=== PATIENT | female | born 1950 | race African-American/Black ===

== ENCOUNTER 2019-04-11 08:40 | Inpatient (IN) | payer MEDICAID ==
[~2019-04-11] VITALS: Ht 167.6 cm; Wt 100.2 kg
[2019-04-11] MEDS ORDERED: ALBUTEROL (0.083%) 2.5MG/3ML NEB HHN STA (10:58)
[2019-04-11] MEDS ORDERED: IPRATROPIUM BROMIDE (0.02%) 0.5MG/2.5ML NEB HHN STA (10:58)
[2019-04-11] MEDS ORDERED: ALBUTEROL (0.083%) 2.5MG/3ML NEB ONE (11:16)
[2019-04-11] MEDS ORDERED: IPRATROPIUM BROMIDE (0.02%) 0.5MG/2.5ML NEB ONE (11:17)
[2019-04-11 11:21] LABS: BASOPHILS % 0.1 % (0.0-2.0); HEMATOCRIT. 32.3 % (36.0-48.0); HEMOGLOBIN. 11.5 g/dL (12.0-16.0); LYMPHOCYTES % 23.6 % (20.0-50.0); MEAN CORPUSCULAR HEMOGLOBIN 33.7 pg (28.0-32.0); MEAN PLATELET VOLUME 9.8 fl (7.4-10.4); MONOCYTES % 9.7 % (2.0-8.0); NEUTROPHILS % 66.6 % (40.0-76.0); PLATELET 125 x1000/uL (130-400); RED CELL DISTRIBUTION WIDTH 14.2 % (11.6-14.6)
[2019-04-11 11:27] LABS: CHLORIDE 107 mEq/L (98-107)
[2019-04-11] MEDS ORDERED: ASPIRIN 81MG TABLET PO ONE (12:15)
[2019-04-11 20:00] VITALS: BP 101/44
[2019-04-11] MEDS ORDERED: DIPH25TA62 PO (20:15)
[2019-04-11] MEDS ORDERED: LEVO125T PO (20:15)
[2019-04-11] MEDS ORDERED: ONDANSETRON HCL 4MG/2ML INJ IV PRN (20:45)
[2019-04-11] MEDS ORDERED: ACETAMINOPHEN 325MG TABLET PO PRN (20:45)
[2019-04-11] MEDS: DIPHENHYDRAMINE 50MG/ML VIAL IV PRN (21:20)
[2019-04-11] MEDS: GUAIFENESIN/CODEINE 200-20MG/10ML UDC PO PRN (21:30)
[2019-04-11] MEDS: METHYLPREDNISOLONE SOD SUCC 40 MG/ML VIAL IV SCH (21:36)
[2019-04-11 23:53] LABS: CREATINE KINASE MB FRACTION 1.7 ng/mL (0.5-3.6)
[2019-04-12] VITALS: BP 125/50
[2019-04-12] MEDS: IPRATROPIUM/ALBUTEROL 0.5-3(2.5)MG/3ML NEB HHN SCH ×4 (00:22→20:54)
[2019-04-12] MEDS: GUAIFENESIN/CODEINE 200-20MG/10ML UDC PO PRN ×3 (03:57→21:17)
[2019-04-12 04:00] VITALS: BP 109/52
[2019-04-12] MEDS: METHYLPREDNISOLONE SOD SUCC 40 MG/ML VIAL IV SCH ×3 (05:31→21:17)
[2019-04-12 07:09] LABS: BASOPHILS % 0.1 % (0.0-2.0); HEMATOCRIT. 33.7 % (36.0-48.0); HEMOGLOBIN. 11.4 g/dL (12.0-16.0); LYMPHOCYTES % 10.5 % (20.0-50.0); MEAN CORPUSCULAR VOLUME 94.8 fL (81.0-99.0); MEAN PLATELET VOLUME 10.4 fl (7.4-10.4); MONOCYTES % 3.3 % (2.0-8.0); NEUTROPHILS % 86.1 % (40.0-76.0); PLATELET 136 x1000/uL (130-400); RED BLOOD CELL COUNT 3.56 mill/uL (4.2-5.4); RED CELL DISTRIBUTION WIDTH 14.1 % (11.6-14.6)
[2019-04-12 07:27] LABS: CHLORIDE 109 mEq/L (98-107)
[2019-04-12 07:38] LABS: LDL CHOLESTEROL 76 mg/dL (5-100)
[2019-04-12 07:39] LABS: CREATINE KINASE 154 IU/L (26-192)
[2019-04-12 07:40] LABS: HDL CHOLESTEROL 36 mg/dL (40-59)
[2019-04-12 07:57] LABS: CREATINE KINASE MB FRACTION 1.7 ng/mL (0.5-3.6)
[2019-04-12 08:00] VITALS: BP 137/68
[2019-04-12] MEDS: LEVOTHYROXINE SODIUM 125MCG TABLET PO SCH (08:45)
[2019-04-12] MEDS ORDERED: AMOXICILLIN/POTASSIUM CLAVULANATE 875/125MG TAB PO SCH (09:00)
[2019-04-12] MEDS: ENOXAPARIN 30MG/0.3ML SYR SUBCUT SCH ×2 (09:38→21:16)
[2019-04-12] MEDS ORDERED: LEVOFLOXACIN 500MG TABLET PO SCH (11:00)
[2019-04-12 12:00] VITALS: BP_SYST 116; BP_SYST 132; BP_DIAS 54; BP_DIAS 87
[2019-04-12 16:00] VITALS: BP 123/63
[2019-04-12 17:00] LABS: CREATINE KINASE MB FRACTION 1.9 ng/mL (0.5-3.6)
[2019-04-12 19:30] VITALS: BP 125/56
[2019-04-13] VITALS: BP 109/46
[2019-04-13] MEDS: IPRATROPIUM/ALBUTEROL 0.5-3(2.5)MG/3ML NEB HHN SCH ×4 (00:15→12:30)
[2019-04-13 04:00] VITALS: BP 141/65
[2019-04-13] MEDS: GUAIFENESIN/CODEINE 200-20MG/10ML UDC PO PRN ×2 (04:53→11:31)
[2019-04-13] MEDS: METHYLPREDNISOLONE SOD SUCC 40 MG/ML VIAL IV SCH ×2 (06:18→14:24)
[2019-04-13] MEDS: LEVOTHYROXINE SODIUM 125MCG TABLET PO SCH (07:10)
[2019-04-13 08:00] VITALS: BP 138/69
[2019-04-13] MEDS: DIPHENHYDRAMINE 50MG/ML VIAL IV PRN ×2 (08:25→14:25)
[2019-04-13] MEDS: ENOXAPARIN 30MG/0.3ML SYR SUBCUT SCH (09:00)
[2019-04-13] MEDS ORDERED: DIPHENHYDRAMINE 50MG/ML VIAL IV PRN (09:30)
[2019-04-13 12:00] VITALS: BP 140/75
[2019-04-13 14:56] VITALS: BP 140/75
== END 2019-04-13 15:58 | disposition home or self-care (01) | DRG 145 ==
LOC: ER 08:40 → 7WST 11:31 → EDBEDREQ 13:25 → EDBEDREQTM 13:25 → EDBEDREQ 13:58 → EDBEDREQTM 13:58 → ENRESERV 17:38
PROVIDERS: ADMIT Internal Medicine; ATTEND Internal Medicine
DX: J20.9 Acute bronchitis, unspecified (principal); E89.0 Postprocedural hypothyroidism; M94.0 Chondrocostal junction syndrome [Tietze]; M19.90 Unspecified osteoarthritis, unspecified site; R79.89 Other specified abnormal findings of blood chemistry; Z85.3 Personal history of malignant neoplasm of breast; Z92.21 Personal history of antineoplastic chemotherapy
CPT/HCPCS: 36415; 71045; 80048; 80061; 82550; 82553; 83036; 83880; 84443; 84484; 87804; 93005; 93306; 94640; 99285; J1200; J1650; J2920; J7611; J7620

== ENCOUNTER 2019-11-26 11:19 | Inpatient (IN) | payer MEDICAID ==
[~2019-11-26] VITALS: Ht 162.6 cm; Wt 87.7 kg
[~2019-11-26 11:19] MED LIST: DIPH25TA62 PO; LEVO125T PO
[2019-11-26] MEDS ORDERED: KETOROLAC 30MG/ML VIAL IV STA (11:39)
[2019-11-26 12:24] LABS: BASOPHILS % 0.4 % (0.0-2.0); HEMATOCRIT. 43.5 % (36.0-48.0); LYMPHOCYTES % 13.9 % (20.0-50.0); MEAN CORPUSCULAR HEMOGLOBIN 32.9 pg (28.0-32.0); MEAN CORPUSCULAR VOLUME 95.6 fL (81.0-99.0); MEAN PLATELET VOLUME 10.6 fl (7.4-10.4); MONOCYTES % 5.7 % (2.0-8.0); PLATELET 165 x1000/uL (130-400); RED BLOOD CELL COUNT 4.55 mill/uL (4.2-5.4); RED CELL DISTRIBUTION WIDTH 14.4 % (11.6-14.6)
[2019-11-26 12:31] LABS: CHLORIDE 106 mEq/L (98-107)
[2019-11-26] MEDS ORDERED: ONDANSETRON HCL 4MG/2ML INJ IV PRN (14:30)
[2019-11-26 19:35] LABS: HEPATITIS B SURFACE ANTIGEN NEGATIVE
[2019-11-26 19:56] LABS: CREATINE KINASE 1724 IU/L (26-192)
[2019-11-26 20:05] LABS: HEPATITIS A AB IGM NEGATIVE (NEGATIVE)
[2019-11-26 23:30] VITALS: BP 116/45
[2019-11-27] VITALS (17 sets, daily range): BP systolic 107–132; BP diastolic 43–76
[2019-11-27] MEDS: HYDROCODONE/ACETAMINOPHEN 10/325MG TABLET PO PRN ×2 (06:35→15:25)
[2019-11-27 06:58] LABS: BASOPHILS % 0.2 % (0.0-2.0); HEMATOCRIT. 33.7 % (36.0-48.0); HEMOGLOBIN. 11.9 g/dL (12.0-16.0); LYMPHOCYTES % 30.2 % (20.0-50.0); MEAN CORPUSCULAR HEMOGLOBIN 33.2 pg (28.0-32.0); MEAN CORPUSCULAR VOLUME 93.8 fL (81.0-99.0); MEAN PLATELET VOLUME 10.2 fl (7.4-10.4); MONOCYTES % 9.5 % (2.0-8.0); NEUTROPHILS % 60.1 % (40.0-76.0); PLATELET 133 x1000/uL (130-400); RED CELL DISTRIBUTION WIDTH 14.7 % (11.6-14.6)
[2019-11-27 07:26] LABS: CHLORIDE 108 mEq/L (98-107)
[2019-11-27] MEDS ORDERED: POTASSIUM CHLORIDE 20MEQ TABLET SR PO NR (09:00)
[2019-11-27] MEDS: LEVOTHYROXINE SODIUM 125MCG TABLET PO SCH (09:43)
[2019-11-27] MEDS ORDERED: GADOBENATE DIMEGLUMINE 529 MG/ML 10ML IV ONE (14:49)
[2019-11-27] MEDS: LEVETIRACETAM 500MG PREMIX 100 ML IV SCH ×2 (15:15→20:50)
[2019-11-27 17:00] LABS: INR 1.1; PROTHROMBIN TIME 11.4 sec (9.6-11.0)
[2019-11-27] MEDS: DEXAMETHASONE 4MG/ML 1ML VIAL IV SCH ×2 (18:38→23:49)
[2019-11-27] MEDS ORDERED: NICARDIPINE 100 MG in SODIUM CHLORIDE 0.9% 60 ML IV PRN (19:00)
[2019-11-28] VITALS (70 sets, daily range): BP systolic 106–149; BP diastolic 45–76
[2019-11-28 03:36] LABS: CLARITY URINE CLEAR (CLEAR); COLOR URINE YELLOW (YELLOW); KETONES URINE TRACE (NEGATIVE); LEUKOCYTE ESTERASE URINE 1+ (NEGATIVE); NITRITE URINE NEGATIVE (NEGATIVE); OCCULT BLOOD URINE 1+ (NEGATIVE); PROTEIN URINE TRACE (NEGATIVE); SPECIFIC GRAVITY URINE 1.062 (1.005-1.030)
[2019-11-28] MEDS: DEXAMETHASONE 4MG/ML 1ML VIAL IV SCH ×3 (05:20→18:11)
[2019-11-28] MEDS: LEVOTHYROXINE SODIUM 125MCG TABLET PO SCH (05:20)
[2019-11-28 05:33] LABS: HEMATOCRIT. 32.7 % (36.0-48.0); HEMOGLOBIN. 11.4 g/dL (12.0-16.0); LYMPHOCYTES % 11.1 % (20.0-50.0); MEAN CORPUSCULAR HEMOGLOBIN 33.1 pg (28.0-32.0); MEAN CORPUSCULAR VOLUME 94.6 fL (81.0-99.0); MEAN PLATELET VOLUME 10.4 fl (7.4-10.4); MONOCYTES % 2.4 % (2.0-8.0); NEUTROPHILS % 86.5 % (40.0-76.0); PLATELET 133 x1000/uL (130-400); RED BLOOD CELL COUNT 3.46 mill/uL (4.2-5.4); RED CELL DISTRIBUTION WIDTH 14.4 % (11.6-14.6)
[2019-11-28 05:35] LABS: CHLORIDE 108 mEq/L (98-107)
[2019-11-28] MEDS ORDERED: LEVOTHYROXINE SODIUM 125MCG TABLET PO SCH (06:30)
[2019-11-28] MEDS ORDERED: BACITRACIN 15GM TUBE TOP ONE (07:58)
[2019-11-28] MEDS ORDERED: THROMBIN (BOVINE) 5000 UNITS/VIAL TOP ONE ×2 (07:58→07:59)
[2019-11-28] MEDS ORDERED: LIDOCAINE HCL/EPINEPHRINE 1%-EPI 1:100,000 20 ML VIAL ONE (07:59)
[2019-11-28] MEDS ORDERED: NORMAL SALINE 0.9% 10 ML SYR ONE (07:59)
[2019-11-28] MEDS ORDERED: BACITRACIN 50,000 UNITS/VIAL ONE (07:59)
[2019-11-28] MEDS: LEVETIRACETAM 500MG PREMIX 100 ML IV SCH ×2 (08:14→20:22)
[2019-11-28] MEDS ORDERED: MIDAZOLAM HCL 2 MG/2 ML VIAL ONE (09:18)
[2019-11-28] MEDS ORDERED: FENTANYL CITRATE/PF 50MCG/ML 2ML VIAL ONE ×2 (09:18→09:58)
[2019-11-28] MEDS ORDERED: ROCURONIUM BROMIDE 10MG/ML VIAL 5ML IV ONE (09:18)
[2019-11-28] MEDS ORDERED: PROPOFOL 200MG/20ML VIAL IV ONE ×2 (09:18→09:59)
[2019-11-28] MEDS ORDERED: NEOSTIGMINE METHYLSULFATE 1MG/ML 10 ML VIAL ONE (09:18)
[2019-11-28] MEDS ORDERED: GLYCOPYRROLATE 0.2 MG/ML 2ML VIAL ONE (09:19)
[2019-11-28] MEDS ORDERED: CLINDAMYCIN 900 MG PREMIX 50 ML IV ONE (09:28)
[2019-11-28] MEDS ORDERED: MANNITOL 20% 500 ML IV ONE (09:35)
[2019-11-28] MEDS ORDERED: DEXAMETHASONE 4MG/ML 1ML VIAL ONE ×2 (09:35→09:49)
[2019-11-28] MEDS ORDERED: ONDANSETRON HCL 4MG/2ML INJ ONE (09:49)
[2019-11-28] MEDS ORDERED: SODIUM CHLORIDE 0.9% 10ML VIAL ONE (10:50)
[2019-11-28] MEDS ORDERED: LIDOCAINE HCL/PF 1% 10 MG/ML 5ML VIAL ONE (10:50)
[2019-11-28] MEDS ORDERED: LABETALOL HCL 5MG/ML VIAL 20ML IV ONE (10:50)
[2019-11-28] MEDS ORDERED: HYDRALAZINE 20MG/ML VIAL ONE (10:51)
[2019-11-28] MEDS: MORPHINE SULFATE 4 MG/ML CPJ (NOT FOR IM USE) IV PRN (11:31)
[2019-11-28] MEDS: DEXT 5%/LACTATED RINGERS 1,000 ML IV SCH (12:06)
[2019-11-28] MEDS ORDERED: LIDOCAINE HCL 1% 20ML VIAL (Pyxis) INJ ONE (12:43)
[2019-11-28] MEDS ORDERED: NALOXONE INJ IV PRN (12:45)
[2019-11-28] MEDS ORDERED: ONDANSETRON INJ IV PRN (12:45)
[2019-11-28] MEDS ORDERED: HYDROMORPHONE PCA 10MG/50ML IV PRN (12:45)
[2019-11-28] MEDS: CLINDAMYCIN 600MG PREMIX 50 ML IV SCH ×2 (13:41→20:22)
[2019-11-28 13:45] LABS: BG BASE EXCESS 0.3 mmol/L (-2.0-2.0); BG CARBOXYHEMOGLOBIN 0.3 % (0.5-1.5); BG DEOXYHEMOGLOBIN 2.4 % (0.0-5.0); BG FRACTION INSPIRED OXYGEN 40; BG HCO3 ACT 24.2 mmol/L (22.0-26.0); BG METHEMOGLOBIN 0.3 % (0.0-1.5); BG OXYGEN SATURATION 97.6 % (92.0-98.5); BG PCO2 36.5 mmHg (35.0-45.0); BG PO2 106.1 mmHg (75.0-100.0); BG PRESSURE SUPPORT 8; BG SAMPLE SITE A-LINE; BG TOTAL HEMOGLOBIN 11.4 g/dL (12.0-18.0); BG VENT MODE VENT - CPAP
[2019-11-29] VITALS (45 sets, daily range): BP systolic 97–166; BP diastolic 44–91
[2019-11-29] MEDS: DEXAMETHASONE 4MG/ML 1ML VIAL IV SCH ×4 (00:14→17:33)
[2019-11-29] MEDS: MORPHINE SULFATE 4 MG/ML CPJ (NOT FOR IM USE) IV PRN ×2 (03:39→22:51)
[2019-11-29 05:35] LABS: CHLORIDE 111 mEq/L (98-107)
[2019-11-29 05:36] LABS: BASOPHILS % 0.1 % (0.0-2.0); HEMATOCRIT. 30.3 % (36.0-48.0); HEMOGLOBIN. 10.5 g/dL (12.0-16.0); LYMPHOCYTES % 8.1 % (20.0-50.0); MEAN CORPUSCULAR HEMOGLOBIN 33.2 pg (28.0-32.0); MEAN CORPUSCULAR VOLUME 95.5 fL (81.0-99.0); MEAN PLATELET VOLUME 10.3 fl (7.4-10.4); MONOCYTES % 4.8 % (2.0-8.0); PLATELET 140 x1000/uL (130-400); RED BLOOD CELL COUNT 3.17 mill/uL (4.2-5.4); RED CELL DISTRIBUTION WIDTH 14.7 % (11.6-14.6)
[2019-11-29] MEDS: CLINDAMYCIN 600MG PREMIX 50 ML IV SCH ×3 (05:48→20:11)
[2019-11-29] MEDS: LEVOTHYROXINE SODIUM 125MCG TABLET PO SCH (05:49)
[2019-11-29] MEDS: LEVETIRACETAM 500MG PREMIX 100 ML IV SCH ×2 (08:37→20:11)
[2019-11-29] MEDS ORDERED: NOREPINEPHRINE 32 MG in DEXT 5% WATER 468 ML IV PRN (23:15)
[2019-11-29] MEDS: HYDROCODONE/ACETAMINOPHEN 10/325MG TABLET PO PRN (23:38)
[2019-11-30] VITALS (29 sets, daily range): BP systolic 115–171; BP diastolic 44–86
[2019-11-30] MEDS: DEXT 5%/LACTATED RINGERS 1,000 ML IV SCH (01:48)
[2019-11-30] MEDS: CLINDAMYCIN 600MG PREMIX 50 ML IV SCH (04:42)
[2019-11-30 05:08] LABS: BASOPHILS % 0.2 % (0.0-2.0); EOSINOPHILS % 0.1 % (0.0-5.0); HEMATOCRIT. 28.5 % (36.0-48.0); HEMOGLOBIN. 10.1 g/dL (12.0-16.0); LYMPHOCYTES % 14.5 % (20.0-50.0); MEAN CORPUSCULAR HEMOGLOBIN 33.6 pg (28.0-32.0); MEAN CORPUSCULAR VOLUME 95.2 fL (81.0-99.0); MEAN PLATELET VOLUME 10.3 fl (7.4-10.4); MONOCYTES % 8.2 % (2.0-8.0); PLATELET 133 x1000/uL (130-400); RED CELL DISTRIBUTION WIDTH 14.5 % (11.6-14.6)
[2019-11-30 05:17] LABS: CHLORIDE 108 mEq/L (98-107)
[2019-11-30] MEDS: LEVOTHYROXINE SODIUM 125MCG TABLET PO SCH (05:32)
[2019-11-30] MEDS: LEVETIRACETAM 500MG PREMIX 100 ML IV SCH ×2 (08:12→20:15)
[2019-11-30] MEDS: MORPHINE SULFATE 4 MG/ML CPJ (NOT FOR IM USE) IV PRN (08:13)
[2019-11-30] MEDS: HYDROCODONE/ACETAMINOPHEN 10/325MG TABLET PO PRN ×2 (09:47→16:36)
[2019-12-01] VITALS (7 sets, daily range): BP systolic 116–155; BP diastolic 53–72
[2019-12-01] MEDS: HYDROCODONE/ACETAMINOPHEN 10/325MG TABLET PO PRN (00:16)
[2019-12-01] MEDS: LEVOTHYROXINE SODIUM 125MCG TABLET PO SCH (06:52)
[2019-12-01] MEDS: LEVETIRACETAM 500MG PREMIX 100 ML IV SCH ×2 (09:27→21:15)
[2019-12-01] MEDS: ACETAMINOPHEN 325MG TABLET PO PRN (14:14)
[2019-12-01] MEDS: MORPHINE SULFATE 4 MG/ML CPJ (NOT FOR IM USE) IV PRN (21:14)
[2019-12-02] VITALS: BP 123/58
[2019-12-02 04:00] VITALS: BP 115/49
[2019-12-02] MEDS: MORPHINE SULFATE 4 MG/ML CPJ (NOT FOR IM USE) IV PRN ×3 (05:15→21:12)
[2019-12-02] MEDS: LEVOTHYROXINE SODIUM 125MCG TABLET PO SCH (06:34)
[2019-12-02 08:00] VITALS: BP 131/60
[2019-12-02] MEDS: LEVETIRACETAM 500MG PREMIX 100 ML IV SCH ×2 (09:19→20:38)
[2019-12-02 12:00] VITALS: BP 109/54
[2019-12-02 16:00] VITALS: BP 112/45
[2019-12-02 20:00] VITALS: BP 109/65
[2019-12-03] VITALS: BP 101/70
[2019-12-03 04:00] VITALS: BP 125/57
[2019-12-03] MEDS: LEVOTHYROXINE SODIUM 125MCG TABLET PO SCH (06:22)
[2019-12-03 08:00] VITALS: BP 123/60
[2019-12-03] MEDS: LEVETIRACETAM 500MG PREMIX 100 ML IV SCH ×2 (09:37→21:09)
[2019-12-03 12:00] VITALS: BP 118/62
[2019-12-03] MEDS: ACETAMINOPHEN 325MG TABLET PO PRN ×2 (13:46→21:16)
[2019-12-03 16:00] VITALS: BP 115/53
[2019-12-03 20:00] VITALS: BP 130/72
[2019-12-03] MEDS ORDERED: MORPHINE SULFATE 4 MG/ML CPJ (NOT FOR IM USE) IV PRN (23:15)
[2019-12-04] VITALS: BP 108/56
[2019-12-04] MEDS: MORPHINE SULFATE 2 MG/ML CPJ (NOT FOR IM USE) IV PRN ×4 (03:01→20:36)
[2019-12-04 04:00] VITALS: BP 130/58
[2019-12-04] MEDS: LEVOTHYROXINE SODIUM 125MCG TABLET PO SCH (06:28)
[2019-12-04 08:00] VITALS: BP 129/54
[2019-12-04] MEDS: LEVETIRACETAM 500MG PREMIX 100 ML IV SCH ×2 (08:30→20:35)
[2019-12-04 12:00] VITALS: BP 113/56
[2019-12-04 16:00] VITALS: BP 118/70
[2019-12-04 20:00] VITALS: BP 121/52
[2019-12-05] VITALS: BP 125/61
[2019-12-05] MEDS: ACETAMINOPHEN 325MG TABLET PO PRN (01:04)
[2019-12-05 04:00] VITALS: BP 111/59
[2019-12-05] MEDS: LEVOTHYROXINE SODIUM 125MCG TABLET PO SCH (06:24)
[2019-12-05 08:00] VITALS: BP 128/59
[2019-12-05] MEDS: LEVETIRACETAM 500MG PREMIX 100 ML IV SCH ×2 (09:15→20:21)
[2019-12-05 12:00] VITALS: BP 107/51
[2019-12-05] MEDS: MORPHINE SULFATE 2 MG/ML CPJ (NOT FOR IM USE) IV PRN ×3 (12:27→20:56)
[2019-12-05 16:00] VITALS: BP 112/59
[2019-12-05 20:00] VITALS: BP 115/51
[2019-12-06] VITALS: BP 112/51
[2019-12-06 04:00] VITALS: BP 114/51
[2019-12-06] MEDS: LEVOTHYROXINE SODIUM 125MCG TABLET PO SCH (06:20)
[2019-12-06 06:21] LABS: CHLORIDE 105 mEq/L (98-107)
[2019-12-06 07:36] LABS: BASOPHILS % 0.2 % (0.0-2.0); HEMATOCRIT. 31.4 % (36.0-48.0); HEMOGLOBIN. 11.1 g/dL (12.0-16.0); LYMPHOCYTES % 19.6 % (20.0-50.0); MEAN CORPUSCULAR HEMOGLOBIN 33.3 pg (28.0-32.0); MEAN CORPUSCULAR VOLUME 94.6 fL (81.0-99.0); MEAN PLATELET VOLUME 10.7 fl (7.4-10.4); MONOCYTES % 9.2 % (2.0-8.0); PLATELET 135 x1000/uL (130-400); RED BLOOD CELL COUNT 3.32 mill/uL (4.2-5.4); RED CELL DISTRIBUTION WIDTH 14.7 % (11.6-14.6)
[2019-12-06 08:00] VITALS: BP 113/59
[2019-12-06] MEDS: LEVETIRACETAM 500MG PREMIX 100 ML IV SCH ×2 (08:53→20:34)
[2019-12-06 12:00] VITALS: BP 116/51
[2019-12-06 16:00] VITALS: BP 90/58
[2019-12-06 20:00] VITALS: BP 126/66
[2019-12-06] MEDS: HYDROCODONE/ACETAMINOPHEN 5/325MG TABLET PO PRN (20:32)
[2019-12-07] VITALS: BP 118/65
[2019-12-07 04:00] VITALS: BP 117/68
[2019-12-07] MEDS: LEVOTHYROXINE SODIUM 125MCG TABLET PO SCH (06:33)
[2019-12-07 07:22] LABS: BASOPHILS % 0.1 % (0.0-2.0); HEMATOCRIT. 31.2 % (36.0-48.0); HEMOGLOBIN. 10.5 g/dL (12.0-16.0); LYMPHOCYTES % 19.6 % (20.0-50.0); MEAN CORPUSCULAR HEMOGLOBIN 31.8 pg (28.0-32.0); MEAN CORPUSCULAR VOLUME 94.4 fL (81.0-99.0); MEAN PLATELET VOLUME 10.5 fl (7.4-10.4); MONOCYTES % 9.1 % (2.0-8.0); NEUTROPHILS % 71.2 % (40.0-76.0); PLATELET 132 x1000/uL (130-400); RED CELL DISTRIBUTION WIDTH 15.1 % (11.6-14.6)
[2019-12-07 07:34] LABS: CHLORIDE 106 mEq/L (98-107)
[2019-12-07 08:00] VITALS: BP 117/58
[2019-12-07] MEDS: DOCUSATE SODIUM 250MG CAPSULE PO SCH ×2 (10:00→17:27)
[2019-12-07] MEDS: LEVETIRACETAM 500MG PREMIX 100 ML IV SCH ×2 (10:00→21:30)
[2019-12-07] MEDS ORDERED: POTASSIUM CHLORIDE 20MEQ TABLET SR PO NR (10:30)
[2019-12-07 12:00] VITALS: BP 110/63
[2019-12-07] MEDS: HYDROCODONE/ACETAMINOPHEN 5/325MG TABLET PO PRN ×2 (14:48→21:35)
[2019-12-07 16:00] VITALS: BP 102/49
[2019-12-07 20:00] VITALS: BP 144/56
[2019-12-08] VITALS: BP 120/59
[2019-12-08 04:00] VITALS: BP 115/49
[2019-12-08] MEDS: HYDROCODONE/ACETAMINOPHEN 5/325MG TABLET PO PRN ×3 (06:49→20:32)
[2019-12-08] MEDS: LEVOTHYROXINE SODIUM 125MCG TABLET PO SCH (06:49)
[2019-12-08 08:00] VITALS: BP 111/57
[2019-12-08] MEDS: LEVETIRACETAM 500MG PREMIX 100 ML IV SCH ×2 (08:25→20:15)
[2019-12-08] MEDS: DOCUSATE SODIUM 250MG CAPSULE PO SCH ×2 (08:25→17:34)
[2019-12-08 12:00] VITALS: BP 126/85
[2019-12-08 16:00] VITALS: BP 114/57
[2019-12-08 20:00] VITALS: BP 108/53
[2019-12-09] VITALS: BP 102/57
[2019-12-09 04:00] VITALS: BP 115/59
[2019-12-09] MEDS: HYDROCODONE/ACETAMINOPHEN 5/325MG TABLET PO PRN ×2 (05:45→14:05)
[2019-12-09] MEDS: LEVOTHYROXINE SODIUM 125MCG TABLET PO SCH ×2 (06:25→06:30)
[2019-12-09 08:00] VITALS: BP 111/54
[2019-12-09] MEDS: DOCUSATE SODIUM 250MG CAPSULE PO SCH ×2 (08:16→16:00)
[2019-12-09] MEDS: LEVETIRACETAM 500MG PREMIX 100 ML IV SCH ×2 (08:16→21:39)
[2019-12-09 12:00] VITALS: BP 109/54
[2019-12-09 16:00] VITALS: BP 111/55
[2019-12-09 20:00] VITALS: BP 116/53
[2019-12-10] VITALS: BP 123/61
[2019-12-10] MEDS: HYDROCODONE/ACETAMINOPHEN 5/325MG TABLET PO PRN ×3 (00:10→14:34)
[2019-12-10 04:00] VITALS: BP 113/57
[2019-12-10] MEDS: LEVOTHYROXINE SODIUM 125MCG TABLET PO SCH (07:09)
[2019-12-10 08:00] VITALS: BP 109/61
[2019-12-10] MEDS: LEVETIRACETAM 500MG PREMIX 100 ML IV SCH ×2 (09:21→21:49)
[2019-12-10] MEDS: DOCUSATE SODIUM 250MG CAPSULE PO SCH ×2 (09:21→17:44)
[2019-12-10 12:00] VITALS: BP 102/51
[2019-12-10 16:43] VITALS: BP_SYST 100; BP_SYST 125; BP_DIAS 52; BP_DIAS 54
[2019-12-10 20:00] VITALS: BP 105/54
[2019-12-11] VITALS: BP 105/66
[2019-12-11] MEDS: HYDROCODONE/ACETAMINOPHEN 5/325MG TABLET PO PRN ×2 (01:32→12:33)
[2019-12-11 04:00] VITALS: BP 100/51
[2019-12-11] MEDS: LEVOTHYROXINE SODIUM 125MCG TABLET PO SCH (06:35)
[2019-12-11 08:00] VITALS: BP 112/57
[2019-12-11] MEDS: LEVETIRACETAM 500MG PREMIX 100 ML IV SCH (08:53)
[2019-12-11] MEDS: DOCUSATE SODIUM 250MG CAPSULE PO SCH (08:53)
[2019-12-11 12:00] VITALS: BP 99/52
[2019-12-11 13:58] VITALS: BP 99/52
== END 2019-12-11 17:55 | disposition short-term general hospital (02) | DRG 21 ==
LOC: ER 11:19 → 6EST 12:58 → EDBEDREQSVC 15:20 → ENRESERV 21:31 → MICUNO 11-27 18:01 → 6EST 11-30 13:35
PROVIDERS: ADMIT Internal Medicine; ATTEND Internal Medicine
PROC: 00B00ZZ Excision of Brain, Open Approach (ICD-10-PCS; principal; 2019-11-28)
PROC: 02HV33Z Insertion of Infusion Device into Superior Vena Cava, Percutaneous Approach (ICD-10-PCS; 2019-11-28)
PROC: B548ZZA Ultrasonography of Superior Vena Cava, Guidance (ICD-10-PCS; 2019-11-28)
PROC: 0BH17EZ Insertion of Endotracheal Airway into Trachea, Via Natural or Artificial Opening (ICD-10-PCS; 2019-11-28)
PROC: 5A1935Z Respiratory Ventilation, Less than 24 Consecutive Hours (ICD-10-PCS; 2019-11-28)
PROC: 4A00X4Z Measurement of Central Nervous Electrical Activity, External Approach (ICD-10-PCS; 2019-12-04)
DX: C79.31 Secondary malignant neoplasm of brain (principal); G93.6 Cerebral edema; G82.20 Paraplegia, unspecified; M48.02 Spinal stenosis, cervical region; D32.9 Benign neoplasm of meninges, unspecified; E11.9 Type 2 diabetes mellitus without complications; E66.9 Obesity, unspecified; D64.9 Anemia, unspecified; E87.6 Hypokalemia; I10 Essential (primary) hypertension; M47.816 Spondylosis without myelopathy or radiculopathy, lumbar region; K57.90 Diverticulosis of intestine, part unspecified, without perforation or abscess without bleeding; C43.9 Malignant melanoma of skin, unspecified; C79.40 Secondary malignant neoplasm of unspecified part of nervous system; E89.0 Postprocedural hypothyroidism; G81.94 Hemiplegia, unspecified affecting left nondominant side; C50.919 Malignant neoplasm of unspecified site of unspecified female breast; I60.9 Nontraumatic subarachnoid hemorrhage, unspecified; R26.2 Difficulty in walking, not elsewhere classified; R74.0 Nonspecific elevation of levels of transaminase and lactic acid dehydrogenase [LDH]; Z71.3 Dietary counseling and surveillance; Z88.0 Allergy status to penicillin; Z79.899 Other long term (current) drug therapy; G93.40 Encephalopathy, unspecified
CPT/HCPCS: 36415; 36600; 70553; 71045; 71260; 72141; 72146; 72148; 74177; 76937; 80048; 80053; 81003; 82375; 82378; 82550; 82805; 82962; 84484; 85025; 86300; 86705; 86709; 86803; 86850; 86900; 87340; 88307; 88331; 92610; 93005; 93306; 94002; 96374; 97116; 97162; 97164; 97166; 97530; 97535; 99285; A9577; C1713; C1725; J0360; J1100; J1170; J1885; J1953; J2250; J2270; J2405; J2704; J2710; J3010; J3490; J7050; J7120; J7121; U0003-CS

== ENCOUNTER 2019-12-11 18:00 | Inpatient (IN) | payer MEDICAID ==
[~2019-12-11] VITALS: Ht 162.6 cm; Wt 87.7 kg
[2019-12-11 20:00] VITALS: BP 122/60
[2019-12-11] MEDS ORDERED: ONDANSETRON HCL 4MG/2ML INJ IV PRN (20:45)
[2019-12-11] MEDS: LEVETIRACETAM 500MG PREMIX 100 ML IV SCH (22:23)
[2019-12-12 06:10] LABS: CHLORIDE 107 mEq/L (98-107)
[2019-12-12] MEDS: LEVOTHYROXINE SODIUM 125MCG TABLET PO SCH (06:11)
[2019-12-12 06:14] LABS: BASOPHILS % 0.1 % (0.0-2.0); HEMOGLOBIN. 10.8 g/dL (12.0-16.0); LYMPHOCYTES % 21.2 % (20.0-50.0); MEAN CORPUSCULAR HEMOGLOBIN 32.4 pg (28.0-32.0); MEAN CORPUSCULAR VOLUME 92.8 fL (81.0-99.0); MEAN PLATELET VOLUME 9.3 fl (7.4-10.4); NEUTROPHILS % 72.7 % (40.0-76.0); PLATELET 154 x1000/uL (130-400); RED BLOOD CELL COUNT 3.34 mill/uL (4.2-5.4); RED CELL DISTRIBUTION WIDTH 14.9 % (11.6-14.6)
[2019-12-12 08:03] VITALS: BP 115/59
[2019-12-12] MEDS: ACETAMINOPHEN 325MG TABLET PO PRN ×2 (08:55→21:48)
[2019-12-12] MEDS: DOCUSATE SODIUM 250MG CAPSULE PO SCH ×2 (08:55→18:19)
[2019-12-12] MEDS: LEVETIRACETAM 500MG PREMIX 100 ML IV SCH ×2 (09:53→21:45)
[2019-12-12 20:00] VITALS: BP 116/64
[2019-12-13 06:55] LABS: CHLORIDE 107 mEq/L (98-107)
[2019-12-13 07:07] LABS: PHOSPHORUS 3.3 mg/dL (2.5-4.9)
[2019-12-13 07:09] LABS: TOTAL IRON BINDING CAPACITY 250 ug/dL (250-450)
[2019-12-13] MEDS: LEVOTHYROXINE SODIUM 125MCG TABLET PO SCH (07:15)
[2019-12-13 08:00] VITALS: BP 110/57
[2019-12-13] MEDS: ACETAMINOPHEN 325MG TABLET PO PRN ×2 (08:02→14:26)
[2019-12-13] MEDS: DOCUSATE SODIUM 250MG CAPSULE PO SCH ×2 (08:02→16:25)
[2019-12-13] MEDS: LEVETIRACETAM 500MG PREMIX 100 ML IV SCH ×2 (08:08→22:11)
[2019-12-13 08:45] LABS: FOLIC ACID (FOLATE) SERUM 9.1 ng/mL (>5.38)
[2019-12-13] MEDS ORDERED: ALTEPLASE 2MG/VIAL ITC NR (13:00)
[2019-12-13 15:15] LABS: CLARITY URINE CLOUDY (CLEAR); COLOR URINE YELLOW (YELLOW); KETONES URINE NEGATIVE (NEGATIVE); LEUKOCYTE ESTERASE URINE 2+ (NEGATIVE); NITRITE URINE NEGATIVE (NEGATIVE); OCCULT BLOOD URINE 1+ (NEGATIVE); PH URINE 5.5 (4.5-8.0); PROTEIN URINE TRACE (NEGATIVE); SPECIFIC GRAVITY URINE 1.021 (1.005-1.030)
[2019-12-13] MEDS ORDERED: LEVOFLOXACIN 500MG TABLET PO NR (18:00)
[2019-12-13] MEDS: CYANOCOBALAMIN 1000MCG/ML VIAL IM SCH (18:12)
[2019-12-13 18:32] LABS: BASOPHILS % 0.3 % (0.0-2.0); HEMATOCRIT. 33.4 % (36.0-48.0); HEMOGLOBIN. 11.7 g/dL (12.0-16.0); LYMPHOCYTES % 9.8 % (20.0-50.0); MEAN CORPUSCULAR HEMOGLOBIN 33.2 pg (28.0-32.0); MEAN CORPUSCULAR VOLUME 94.2 fL (81.0-99.0); MEAN PLATELET VOLUME 9.4 fl (7.4-10.4); MONOCYTES % 5.9 % (2.0-8.0); PLATELET 171 x1000/uL (130-400); RED BLOOD CELL COUNT 3.54 mill/uL (4.2-5.4); RED CELL DISTRIBUTION WIDTH 15.3 % (11.6-14.6)
[2019-12-13 20:00] VITALS: BP 135/61
[2019-12-14] MEDS: ACETAMINOPHEN 325MG TABLET PO PRN ×2 (00:23→14:27)
[2019-12-14] MEDS: LEVOTHYROXINE SODIUM 125MCG TABLET PO SCH (06:22)
[2019-12-14 08:00] VITALS: BP 138/64
[2019-12-14] MEDS: LEVETIRACETAM 500MG PREMIX 100 ML IV SCH ×2 (09:00→21:23)
[2019-12-14] MEDS: DOCUSATE SODIUM 250MG CAPSULE PO SCH ×2 (10:12→17:00)
[2019-12-14] MEDS: CYANOCOBALAMIN 1000MCG/ML VIAL IM SCH (10:12)
[2019-12-14] MEDS: LEVOFLOXACIN 250MG TABLET PO SCH (11:00)
[2019-12-14 20:00] VITALS: BP 158/87
[2019-12-15] MEDS: ACETAMINOPHEN 325MG TABLET PO PRN (00:45)
[2019-12-15] MEDS: LEVOTHYROXINE SODIUM 125MCG TABLET PO SCH (06:27)
[2019-12-15 06:39] LABS: CHLORIDE 109 mEq/L (98-107)
[2019-12-15 07:11] LABS: BASOPHILS % 0.1 % (0.0-2.0); HEMATOCRIT. 29.2 % (36.0-48.0); HEMOGLOBIN. 10.1 g/dL (12.0-16.0); LYMPHOCYTES % 30.6 % (20.0-50.0); MEAN CORPUSCULAR HEMOGLOBIN 32.3 pg (28.0-32.0); MEAN CORPUSCULAR VOLUME 93.8 fL (81.0-99.0); MEAN PLATELET VOLUME 9.6 fl (7.4-10.4); MONOCYTES % 9.2 % (2.0-8.0); NEUTROPHILS % 60.1 % (40.0-76.0); PLATELET 134 x1000/uL (130-400); RED BLOOD CELL COUNT 3.11 mill/uL (4.2-5.4); RED CELL DISTRIBUTION WIDTH 15.2 % (11.6-14.6)
[2019-12-15 08:00] VITALS: BP 121/61
[2019-12-15] MEDS: LEVETIRACETAM 500MG PREMIX 100 ML IV SCH ×2 (09:09→21:09)
[2019-12-15] MEDS: DOCUSATE SODIUM 250MG CAPSULE PO SCH ×2 (09:09→16:35)
[2019-12-15] MEDS: CYANOCOBALAMIN 1000MCG/ML VIAL IM SCH (09:09)
[2019-12-15] MEDS: LEVOFLOXACIN 250MG TABLET PO SCH (11:21)
[2019-12-15 20:00] VITALS: BP 125/48
[2019-12-16] MEDS: ACETAMINOPHEN 325MG TABLET PO PRN ×3 (02:10→23:00)
[2019-12-16] MEDS: LEVOTHYROXINE SODIUM 125MCG TABLET PO SCH (06:14)
[2019-12-16 08:21] VITALS: BP 126/57
[2019-12-16] MEDS: CYANOCOBALAMIN 1000MCG/ML VIAL IM SCH (08:23)
[2019-12-16] MEDS: LEVETIRACETAM 500MG PREMIX 100 ML IV SCH (08:23)
[2019-12-16] MEDS: DOCUSATE SODIUM 250MG CAPSULE PO SCH ×2 (08:23→16:30)
[2019-12-16] MEDS: LEVOFLOXACIN 250MG TABLET PO SCH (11:07)
[2019-12-16] MEDS: LEVETIRACETAM 500MG TABLET PO SCH (21:04)
[2019-12-17 06:07] LABS: 25-HYDROXY VITAMIN D3 21 ng/mL (.)
[2019-12-17] MEDS: LEVOTHYROXINE SODIUM 125MCG TABLET PO SCH (06:09)
[2019-12-17] MEDS: ACETAMINOPHEN 325MG TABLET PO PRN ×2 (06:20→15:35)
[2019-12-17 08:00] VITALS: BP 113/56
[2019-12-17 08:28] VITALS: BP 113/56
[2019-12-17] MEDS: DOCUSATE SODIUM 250MG CAPSULE PO SCH ×2 (10:04→17:46)
[2019-12-17] MEDS: LEVOFLOXACIN 250MG TABLET PO SCH (10:04)
[2019-12-17] MEDS: CYANOCOBALAMIN 1000MCG/ML VIAL IM SCH (10:04)
[2019-12-17] MEDS: LEVETIRACETAM 500MG TABLET PO SCH ×2 (10:04→21:13)
[2019-12-17] MEDS ORDERED: ERGOCALCIFEROL 50000UNITS CAPSULE PO SCH (16:00)
[2019-12-17 20:00] VITALS: BP 116/60
[2019-12-18 06:22] LABS: BASOPHILS % 0.1 % (0.0-2.0); HEMATOCRIT. 30.3 % (36.0-48.0); HEMOGLOBIN. 10.2 g/dL (12.0-16.0); LYMPHOCYTES % 28.9 % (20.0-50.0); MEAN CORPUSCULAR HEMOGLOBIN 31.6 pg (28.0-32.0); MEAN CORPUSCULAR VOLUME 93.6 fL (81.0-99.0); MEAN PLATELET VOLUME 9.9 fl (7.4-10.4); MONOCYTES % 7.5 % (2.0-8.0); NEUTROPHILS % 63.5 % (40.0-76.0); PLATELET 160 x1000/uL (130-400); RED BLOOD CELL COUNT 3.24 mill/uL (4.2-5.4); RED CELL DISTRIBUTION WIDTH 14.6 % (11.6-14.6)
[2019-12-18] MEDS: LEVOTHYROXINE SODIUM 125MCG TABLET PO SCH (06:44)
[2019-12-18 06:47] LABS: CHLORIDE 109 mEq/L (98-107)
[2019-12-18 08:00] VITALS: BP 108/76
[2019-12-18] MEDS: DOCUSATE SODIUM 250MG CAPSULE PO SCH ×2 (09:14→17:21)
[2019-12-18] MEDS: LEVETIRACETAM 500MG TABLET PO SCH ×2 (09:14→22:04)
[2019-12-18] MEDS: CYANOCOBALAMIN 1000MCG/ML VIAL IM SCH (09:14)
[2019-12-18] MEDS: LEVOFLOXACIN 250MG TABLET PO SCH (11:58)
[2019-12-18 20:19] VITALS: BP 130/56
[2019-12-19] MEDS: ACETAMINOPHEN 325MG TABLET PO PRN (01:55)
[2019-12-19] MEDS: LEVOTHYROXINE SODIUM 125MCG TABLET PO SCH (06:13)
[2019-12-19 09:27] VITALS: BP 126/71
[2019-12-19] MEDS: DOCUSATE SODIUM 250MG CAPSULE PO SCH (09:36)
[2019-12-19] MEDS: LEVETIRACETAM 500MG TABLET PO SCH (09:36)
[2019-12-19] MEDS: CYANOCOBALAMIN 1000MCG/ML VIAL IM SCH (09:36)
[2019-12-19 15:34] VITALS: BP 126/71
== END 2019-12-19 17:00 | DRG 41 ==
PROVIDERS: ADMIT Physical Medicine & Rehabilitation Spinal Cord Injury Medicine; ATTEND Internal Medicine
DX: C79.31 Secondary malignant neoplasm of brain (principal); E44.1 Mild protein-calorie malnutrition; E11.9 Type 2 diabetes mellitus without complications; E66.9 Obesity, unspecified; M19.90 Unspecified osteoarthritis, unspecified site; Z68.33 Body mass index [BMI] 33.0-33.9, adult; E89.0 Postprocedural hypothyroidism; G81.94 Hemiplegia, unspecified affecting left nondominant side; G82.20 Paraplegia, unspecified; I10 Essential (primary) hypertension; M47.9 Spondylosis, unspecified; M48.02 Spinal stenosis, cervical region; R13.10 Dysphagia, unspecified; E55.9 Vitamin D deficiency, unspecified; M54.5 Low back pain; R51 Headache; R53.81 Other malaise; R53.1 Weakness; E53.8 Deficiency of other specified B group vitamins; N39.0 Urinary tract infection, site not specified; R26.89 Other abnormalities of gait and mobility; R74.0 Nonspecific elevation of levels of transaminase and lactic acid dehydrogenase [LDH]; Z88.0 Allergy status to penicillin; Z79.899 Other long term (current) drug therapy; Z92.21 Personal history of antineoplastic chemotherapy; Z85.3 Personal history of malignant neoplasm of breast; Z71.3 Dietary counseling and surveillance; Z86.011 Personal history of benign neoplasm of the brain; D50.9 Iron deficiency anemia, unspecified; E87.6 Hypokalemia
CPT/HCPCS: 36415; 80048; 80053; 81003; 82140; 82306; 82607; 82728; 82746; 83540; 83550; 83735; 84100; 84134; 84443; 85025; 87077; 87186; 92523; 92610; 93970; 97110; 97116; 97162; 97166; 97530; 97535; J1953; J2997; J3420

== ENCOUNTER 2021-07-06 07:07 | Emergency (ER) | payer MEDICAID ==
[~2021-07-06] VITALS: Ht 172.7 cm; Wt 92.0 kg
[2021-07-06 07:20] VITALS: BP 134/68
[2021-07-06] MEDS ORDERED: DIAZEPAM 2 MG TABLET PO ONE (08:15)
[2021-07-06] MEDS ORDERED: DIAZ2TAB MT (09:33)
== END 2021-07-06 09:58 | disposition home or self-care (01) ==
LOC: ER 07:07
DX: M54.30 Sciatica, unspecified side (principal); M19.90 Unspecified osteoarthritis, unspecified site; Z85.9 Personal history of malignant neoplasm, unspecified; Z88.0 Allergy status to penicillin
CPT/HCPCS: 72131; 99284

== ENCOUNTER 2021-07-08 10:29 | Emergency (ER) | payer MEDICAID ==
[~2021-07-08] VITALS: Ht 165.1 cm; Wt 100.0 kg
[~2021-07-08 10:29] MED LIST changes: +DIAZ2TAB MT
[2021-07-08] MEDS ORDERED: NAPROXEN 250MG TABLET PO ONE (11:00)
[2021-07-08] MEDS ORDERED: HYDROCODONE/ACETAMINOPHEN 5/325MG TABLET PO ONE (11:00)
[2021-07-08 12:50] LABS: BASOPHILS % 0.3 % (0.0-2.0); EOSINOPHILS % 0.2 % (0.0-5.0); HEMATOCRIT. 35.7 % (36.0-48.0); HEMOGLOBIN. 12.4 g/dL (12.0-16.0); LYMPHOCYTES % 17.4 % (20.0-50.0); MEAN CORPUSCULAR HEMOGLOBIN 32.5 pg (28.0-32.0); MEAN CORPUSCULAR VOLUME 93.4 fL (81.0-99.0); MONOCYTES % 9.1 % (2.0-8.0); RED BLOOD CELL COUNT 3.82 mill/uL (4.2-5.4); RED CELL DISTRIBUTION WIDTH 14.9 % (11.6-14.6)
[2021-07-08 13:07] LABS: CHLORIDE 106 mEq/L (98-107)
[2021-07-08 13:12] LABS: PLATELET 182 x1000/uL (130-400)
[2021-07-08] MEDS ORDERED: ONDANSETRON HCL 4MG/2ML INJ IV STA (13:17)
[2021-07-08] MEDS ORDERED: MORPHINE SULFATE 4 MG/ML CPJ (NOT FOR IM USE) IV STA (13:17)
[2021-07-08 18:56] VITALS: BP 149/64
== END 2021-07-08 19:28 | disposition short-term general hospital (02) ==
LOC: ER 11:38 → CANBEDREQ 20:47
DX: M54.9 Dorsalgia, unspecified (principal); G89.29 Other chronic pain; C79.89 Secondary malignant neoplasm of other specified sites; I49.8 Other specified cardiac arrhythmias; Z88.0 Allergy status to penicillin
CPT/HCPCS: 36415; 71045; 72148; 80053; 85025; 87426; 93005; 96374; 96375; 99285; J2270; J2405

== ENCOUNTER 2021-07-16 12:10 | Emergency (ER) | payer MEDICAID, OTHER ==
[~2021-07-16] VITALS: Ht 170.2 cm; Wt 77.1 kg
[2021-07-16] MEDS ORDERED: MORPHINE SULFATE 4 MG/ML CPJ (NOT FOR IM USE) IV ONE ×2 (12:45→17:00)
[2021-07-16] MEDS ORDERED: ACETAMINOPHEN 325MG TABLET PO ONE (12:45)
[2021-07-16 14:09] LABS: BASOPHILS % 0.1 % (0.0-2.0); HEMATOCRIT. 34.2 % (36.0-48.0); HEMOGLOBIN. 11.6 g/dL (12.0-16.0); LYMPHOCYTES % 22.9 % (20.0-50.0); MEAN CORPUSCULAR VOLUME 94.2 fL (81.0-99.0); MEAN PLATELET VOLUME 9.9 fl (7.4-10.4); MONOCYTES % 10.5 % (2.0-8.0); NEUTROPHILS % 66.5 % (40.0-76.0); PLATELET 148 x1000/uL (130-400); RED BLOOD CELL COUNT 3.63 mill/uL (4.2-5.4); RED CELL DISTRIBUTION WIDTH 15.2 % (11.6-14.6)
[2021-07-16 14:12] LABS: CHLORIDE 110 mEq/L (98-107)
[2021-07-16 17:45] LABS: CLARITY URINE CLEAR (CLEAR); COLOR URINE DARK YELLOW (YELLOW); KETONES URINE 2+ (NEGATIVE); LEUKOCYTE ESTERASE URINE NEGATIVE (NEGATIVE); NITRITE URINE NEGATIVE (NEGATIVE); OCCULT BLOOD URINE NEGATIVE (NEGATIVE); PROTEIN URINE TRACE (NEGATIVE); SPECIFIC GRAVITY URINE 1.031 (1.005-1.030)
[2021-07-16 20:20] VITALS: BP 139/63
== END 2021-07-16 20:30 | disposition short-term general hospital (02) ==
LOC: ER 12:10
DX: C80.1 Malignant (primary) neoplasm, unspecified (principal); C79.51 Secondary malignant neoplasm of bone; R26.9 Unspecified abnormalities of gait and mobility; E66.9 Obesity, unspecified; Z68.26 Body mass index [BMI] 26.0-26.9, adult; Z88.0 Allergy status to penicillin; Z20.822 Contact with and (suspected) exposure to COVID-19
CPT/HCPCS: 36415; 72131; 80053; 81003; 85025; 87426; 96374; 96376; 99285; J2270